=== PATIENT | male | born 2000 | race Hispanic/Latino ===

== ENCOUNTER 2018-07-24 04:03 | Emergency (ER) | payer BC ==
[2018-07-24 04:12] VITALS: BMI 19.5
[2018-07-24 04:15] VITALS: RESP 18
--- NOTE | 2018-07-24 04:46 | ED PDOC ---
Lower Extremity Pain/Injury Time Seen by Provider: 07/24/18 04:19 Chief Complaint (Nursing): Lower Extremity Problem/Injury Chief Complaint (Provider): right ankle pain History Per: Patient History/Exam Limitations: no limitations Onset/Duration Of Symptoms: Hrs (2) Current Symptoms Are (Timing): Still Present Additional Complaint(s): 17 y/o male brought in by EMS for evaluation of right ankle pain x 2 hours. Patient states pain woke him from his sleep, which is worsened by movement. Patient states he had fencing practice last night from 20:30-22:30 but denies k nown trauma at that time. Denies numbness/weakness right lower extremity, limitation of movement. No medication taken for relief thus far Past Medical History Reviewed: Historical Data, Nursing Documentation, Vital Signs Vital Signs: Last Vital Signs Temp 98.3 F 07/24/18 04:12 Pulse 71 07/24/18 04:12 Resp 18 07/24/18 04:12 BP 106/69 07/24/18 04:12 Pulse Ox 98 07/24/18 04:12 - Medical History PMH: No Chronic Diseases - Surgical History Surgical History: No Surg Hx - Family History Family History: States: No Known Family Hx - Living Arrangements Living Arrangements: With Friends/Others (student) - Allergies Allergies/Adverse Reactions: Allergies Allergy/AdvReac Type Severity Reaction Status Date / Time latex Allergy RASH Verified 07/24/18 04:11 Review of Systems ROS Statement: Except As Marked, All Systems Reviewed And Found Negative Musculoskeletal: Positive for: Foot Pain (right ankle) Physical Exam - Reviewed Nursing Documentation Reviewed: Yes Vital Signs Reviewed: Yes - Physical Exam Appears: Positive for: Well, Non-toxic, No Acute Distress Pulses-Dorsalis Pedis (L): 2+ Pulses-Dorsalis Pedis (R): 2+ Pulses-Post. Tibialis (L): 2+ Pulses-Post. Tibialis (R): 2+ Extremity: Positive for: Swelling (right lateral malleolus with + tenderness to palpation; pain with dorsi and plantar flexion. Distal NV/motor intact) Neurological/Psych: Positive for: Awake, Alert, Oriented - ECG O2 Sat by Pulse Oximetry: 98 - Other Rad xray right ankle X-Ray: Viewed By Me X-Ray Interpretation: no acute findings - Progress ED Course And Treament: -right ankle xray -ibuprofen PO Patient educated on findings, right ankle wrapped in TAMY compression, crutches given with demonstration on use Advised RICE, NSAIDs Follow up PMD within 2-3 days Follow up podiatry for persistent symptoms Return precautions given Disposition - Clinical Impression Clinical Impression: Ankle sprain - Patient ED Disposition Is Patient to be Admitted: No Counseled Patient/Family Regarding: Studies Performed, Diagnosis, Need For Followup - Disposition Disposition: Routine/Home Disposition Time: 05:15 Condition: IMPROVED Instructions: Ankle Sprain Forms: [employer] ([place])
[2018-07-24 06:45] VITALS: BP 102/67; PULSE 72; TEMP 98.2; O2SAT 99
--- NOTE | 2018-07-24 08:05 | RAD ---
Date of service: 07/24/2018 PROCEDURE: Right Ankle Radiographs. HISTORY: lateral pain COMPARISON: None available. FINDINGS: BONES: No acute fracture or destructive bony lesion identified. JOINTS: Normal. No osteoarthritis. Ankle mortise maintained. Talar dome intact SOFT TISSUES: Normal. OTHER FINDINGS: None. IMPRESSION: Unremarkable right ankle radiographs.
== END 2018-07-24 06:26 | disposition home or self-care (01) ==
LOC: H.ER 04:03
DX: S93.401A Sprain of unspecified ligament of right ankle, initial encounter (principal); X58.XXXA Exposure to other specified factors, initial encounter